=== PATIENT | female | born 1960 | race Caucasian/White ===

== ENCOUNTER → 2018-04-05 | Day surgery (SDC) | payer OTHER ==
[~2018-04-05] VITALS: Ht 162.6 cm; Wt 93.7 kg
[~2018-04-05] MED LIST: NO MEDS; PROPOFOL 40 ML ONE
--- NOTE | 2018-04-05 11:08 | PREAC ---
Date/Time of Note Date/Time of Note DATE: 04/05/18 TIME: 11:07 Anesthesia Eval and Record Evaluation Time Pre-Procedure Interview DATE: 04/05/18 TIME: 11:07 Age 58 Sex female NPO: 8 hrs Preoperative diagnosis abd pain Planned procedure colonoscopy Past Medical History Past Medical History: Includes GI: Morbid obesity Surgery & Anesthesia Issues No known issue Meds Anticoagulation: No Beta Tomeka within 24 hr: No Reason Beta Tomeka not given: Pt. not on B-Tomeka Reported Medications [No Meds] No Conflict Check 09/24/14 Meds reviewed: Yes Allergies Coded Allergies: No Known Allergy (Unverified , 09/24/14) Allergies Reviewed: Yes Labs/Studies Labs Reviewed: Reviewed by anesthesiologist test: Negative Studies: ECG Pre-procedure Exam Airway: Adequate mouth opening, Adequate thyromental dist Mallampati: Mallampati II Teeth: Normal Lung: Normal Heart: Normal ASA Physical Status ASA physical status: 2 Emergency: None Planned Anesthetic General/MAC: MAC Pre-operative Attestations Prior to commencing anesthesia and surgery, the patient was re-evaluated, there was verification of: *The patient's identity *The results of appropriate recent lab work and preoperative vital signs *The above evaluation not changing prior to induction *Anesthetic plan, risk benefits, alternative and complications discussed with patient/family; questions answered; patient/family understands, accepts and wishes to proceed. TESSIE KELLOGG Apr 05, 2018 11:08
[2018-04-05 11:12] VITALS: Ht 162.6 cm; Wt 93.7 kg
[2018-04-05 11:15] VITALS: BP 144/83; PULSE 65; RESP 20
[2018-04-05 12:10] VITALS: BP 129/82; PULSE 60; RESP 15
--- NOTE | 2018-04-05 18:41 | PAC ---
Date/Time of Note Date/Time of Note DATE: 04/05/18 TIME: 18:41 Post-Anesthesia Notes Post-Anesthesia Note Last documented vital signs Vital Signs Date Temp Pulse Resp B/P (MAP) Pulse Ox O2 O2 Flow FiO2 Time Delivery Rate 04/05/18 60 15 129/82 97 Room Air 12:10 (98) 04/05/18 97.8 11:15 Activity: WNL Respiratory function: WNL Cardiovascular function: WNL Mental status: Baseline Pain reasonably controlled: Yes Hydration appropriate: Yes Nausea/Vomiting absent: Yes TESSIE KELLOGG Apr 05, 2018 18:41
== END | disposition home or self-care (01) ==
LOC: GIL 10:05
PROVIDERS: ATTEND Internal Medicine Gastroenterology
DX: Z12.11 Encounter for screening for malignant neoplasm of colon (principal); K64.8 Other hemorrhoids; E66.9 Obesity, unspecified; Z68.35 Body mass index [BMI] 35.0-35.9, adult